=== PATIENT | male | born 1980 | race Caucasian/White ===

== ENCOUNTER 2023-10-06 23:28 | Emergency (ER) | payer OTHER, SELFPAY ==
[2023-10-06 23:39] VITALS: BP 150/101; PULSE 70; RESP 16; TEMP 36.7; O2SAT 96; BMI 34.4
[2023-10-07] VITALS: BP 160/100; PULSE 71; RESP 15; O2SAT 97
--- NOTE | 2023-10-07 00:15 | ECG_ITS ---
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 Measurements Intervals [place] Rate: 61 P: 38 ME: 133 QRS: 46 QRSD: 112 T: 40 QT: 398 QTc: 403 Interpretive Statements SINUS RHYTHM MODERATE INTRAVENTRICULAR CONDUCTION DELAY [110+ ms QRS DURATION] No previous ECG available for comparison Electronically Signed On 10-08-2023 0:07:12 CDT by Mary Garcia M.D. [id number]
[2023-10-07 00:29] LABS: Basophils # 0.1 10^3/uL (0.0-0.1); Basophils % 0.8 %; Eosinophils # 0.2 10^3/uL (0.0-0.8); Eosinophils % 2.8 %; Hematocrit 44.6 % (37-53); Lymphocytes # 1.9 10^3/uL (0.8-4.8); Lymphocytes % 31.2 %; Mean Corpuscular HGB Conc 33.6 g/dL (30-55); Mean Corpuscular Hemoglobin 30.1 pg (27-33); Mean Corpuscular Volume 89.4 fl (82-101); Mean Platelet Volume 9.7 fL (7.4-10.4); Monocytes # 0.5 10^3/uL (0.2-0.9); Monocytes % 7.8 %; Neutrophils # 3.53 10^3/uL (1.8-7.7); Neutrophils % 57.2 %; Nucleated Red Blood Cells % 0 %; Platelet Count 224 10^3/cmm (157-399); Red Blood Count 4.99 10^6/uL (3.85-5.65); Red Cell Distribution Width 14.2 % (12.1-15.1); White Blood Count 6.16 10^3/uL (3.29-11.43)
[2023-10-07 00:30] VITALS: BP 143/101; PULSE 68; RESP 16; O2SAT 96
[2023-10-07] MEDS: sodium chloride 0.9% 1,000 ML 999 ML IV (00:32)
--- NOTE | 2023-10-07 00:54 | W.ED.GENADLT ---
HPI - General Adult General: Chief complaint: General Medical Stated complaint: Lightheaded, High BP Time Seen by Provider: 10/07/23 00:08 History of Present Illness: Patient worked out in heat today and has not been drinking a lot of fluids. Earlier today he started feeling lightheaded had intermittent tingling numbness in his arms and legs. Patient denies any chest pain shortness of breath nausea vomiting coughs colds fevers chills. Patient's blood pressure was elevated at 150/101. Review of Systems General: Reports: 10 or more systems reviewed and unremarkable except in HPI and below Physical Exam Const: COMMON NORMALS: no acute distress, average body habitus, patient oriented x3, no limitations, healthy appearing, alert and well nourished HENMT: COMMON NORMALS: normocephalic, atraumatic, hearing grossly normal bilaterally, external ears normal, Normal external nose present and moist oral mucous membranes HEAD & SCALP: normocephalic and atraumatic NOSE: Normal external nose present EXTERNAL EAR: Yes external ears normal Eye: COMMON NORMALS: Equal, round and reactive pupils present, EOMs intact bilaterally, conjunctivae normal and no scleral icterus CONJUNCTIVA: Yes conjunctivae normal PUPIL: Yes Equal, round and reactive pupils present Neck/C-Spine: COMMON NORMALS: full ROM, no lymphadenopathy, supple, no meningeal signs, no JVD and Thyroid normal THYROID: Thyroid normal Chest: COMMONS NORMALS: normal inspection of the chest and normal palpation of entire chest wall Resp: COMMON NORMALS: normal respiratory effort, No retractions, No use of accessory muscles and clear to auscultation bilaterally AUSCULTATION: clear to auscultation bilaterally Cardio: COMMON NORMALS: no JVD, regular rate, regular rhythm, S1 normal heart sound present, S2 normal heart sound present, No gallops present (Cardio), No clicks present (Cardio), No murmurs present (Cardio) and No rub (Cardio) RATE: regular rate RHYTHM: regular rhythm HEART SOUNDS: S1 normal heart sound present and S2 normal heart sound present GI: COMMON NORMALS: Normal to inspection, nondistended, normoactive bowel sounds present, Soft to palpation, non-tender, No hepatosplenomegaly present and no masses PALPATION: Yes Soft to palpation and Yes No hepatosplenomegaly present Neuro: COMMON NORMALS: patient oriented x3 SENSORIUM/ORIENTATION: Yes alert MENINGEAL SIGNS: Yes no meningeal signs Course Vital Signs: Vital signs: Vital Signs Temperature 98.1 F 10/06/23 23:39 Pulse Rate 60 10/07/23 01:30 Respiratory Rate 16 10/07/23 01:30 Blood Pressure 166/99 10/07/23 01:30 Pulse Oximetry 95 10/07/23 01:30 Oxygen Delivery Me thod Room Air 10/07/23 00:00 MDM - General Adult Medical Decision Making Patient was bolused 1 L fluid, and lab work was checked, CBC CMP TSH urinalysis magnesium, glucose was 138, TSH was 4.66, magnesium was 1.8 urinalysis showed specific gravity 1.020, patient was feeling much better after liter of fluid patient was instructed to drink more fluids. And follow-up with [facility] practitioner in the next 7 days also keep an eye on his blood pressure. Medical Records I reviewed the patient's medical records. Lab Data I reviewed the patient's lab results. 10/07/23 00:18 10/07/23 00:18 Laboratory Results WBC 6.16 10^3/uL (3.29-11.43) 10/07/23 00:18 RBC 4.99 10^6/uL (3.85-5.65) 10/07/23 00:18 Hgb 15.00 g/dL (11.27-16.99) 10/07/23 00:18 Hct 44.6 % (37-53) 10/07/23 00:18 MCV 89.4 fl (82-101) 10/07/23 00:18 MCH 30.1 pg (27-33) 10/07/23 00:18 MCHC 33.6 g/dL (30-55) 10/07/23 00:18 RDW 14.2 % (12.1-15.1) 10/07/23 00:18 Plt Count 224 10^3/cmm (157-399) 10/07/23 00:18 MPV 9.7 fL (7.4-10.4) 10/07/23 00:18 Neut % (Auto) 57.2 % 10/07/23 00:18 Lymph % (Auto) 31.2 % 10/07/23 00:18 [place] % (Auto) 7.8 % 10/07/23 00:18 Eos % (Auto) 2.8 % 10/07/23 00:18 Baso % (Auto) 0.8 % 10/07/23 00:18 Neut # (Auto) 3.53 10^3/uL (1.8-7.7) 10/07/23 00:18 Lymph # (Auto) 1.9 10^3/uL (0.8-4.8) 10/07/23 00:18 [place] # (Auto) 0.5 10^3/uL (0.2-0.9) 10/07/23 00:18 Eos # (Auto) 0.2 10^3/uL (0.0-0.8) 10/07/23 00:18 Baso # (Auto) 0.1 10^3/uL (0.0-0.1) 10/07/23 00:18 Nucleated RBC % (auto) 0 % 10/07/23 00:18 Nucleated RBCs # 0.0 /100WBC 10/07/23 00:18 Sodium 139 mmol/L (136-145) 10/07/23 00:18 Potassium 4.1 mmol/L (3.5-5.1) 10/07/23 00:18 Chloride 103 mmol/L (98-107) 10/07/23 00:18 Carbon Dioxide 26 mmol/L (22-29) 10/07/23 00:18 Anion Gap 14.1 (5-19) 10/07/23 00:18 BUN 9 mg/dL (6-20) 10/07/23 00:18 Creatinine 0.8 mg/dL (0.7-1.2) 10/07/23 00:18 GFR Calculation 105.5 mL/min (90-130) 10/07/23 00:18 Glucose 138 mg/dL (65-115) H 10/07/23 00:18 Calculated Osmolality 289 mOsm/kg (285-295) 10/07/23 00:18 Calcium 9.7 mg/dL (8.5-10.5) 10/07/23 00:18 Magnesium 1.8 mg/dL (1.7-2.3) 10/07/23 00:18 Total Bilirubin 0.2 mg/dL (0.15-1.2) 10/07/23 00:18 AST 65 U/L (0-40) H 10/07/23 00:18 ALT 88 U/L (0-41) H 10/07/23 00:18 Alkaline Phosphatase 74 U/L (40-130) 10/07/23 00:18 Creatine Kinase 98 U/L (39-308) 10/07/23 00:18 Total Protein 6.9 g/dL (6.6-8.7) 10/07/23 00:18 Albumin 3.9 g/dL (3.5-5.2) 10/07/23 00:18 Globulin 3.0 g/dL (1.3-4.6) 10/07/23 00:18 TSH 4.66 uIU/mL (0.27-4.20) H 10/07/23 00:18 Urine Color Yellow (Yellow) 10/07/23 01:25 Urine Appearance Clear (CLEAR) 10/07/23 01:25 Urine pH 6 (5-7) 10/07/23 01:25 Ur Specific [place] 1.020 (1.005-1.030) 10/07/23 01:25 Urine Protein Neg (Negative) 10/07/23 01:25 Urine Glucose (UA) Norm (Normal) 10/07/23 01:25 Urine Ketones Negative (Negative) 10/07/23 01:25 Urine Blood Neg (Negative) 10/07/23 01:25 Urine Nitrate Negative (Negative) 10/07/23 01:25 Urine Bilirubin Neg (Negative) 10/07/23 01:25 Urine Urobilinogen Neg mg/dL (Negative) 10/07/23 01:25 Ur Leukocyte Esterase Negative (Negative) 10/07/23 01:25 All radiology interpretation(s) finalized by discharge Discharge Plan Discharge Patient Disposition: Home Clinical Impression: Acute dehydration Condition: Stable Discharge Orders: Discharge ED (Routine); Ordered 10/07/23 Ordered By: Tanner Grant Patient Instructions: Dehydration - Adult Activity Restrictions/Additional Instructions: During heat please make sure you push plenty of fluids. Your labs show you are mildly dehydrated. Your liver enzymes are slightly elevated as well as your TSH for your thyroid. This is probably due to dehydration as well however you may want to have these rechecked in the short-term future. Please keep an eye on your blood pressure as your blood pressure has been slightly elevated in the ER this may be due to dehydration or may be due to just you developing high blood pressure. Please follow-up with your family practice doctor in the next 7 to 10 days for further evaluation and treatment. Coding Level of Care Code ED Panelboard Operator for Sandra Bunch
[2023-10-07 00:57] LABS: Alanine Aminotransferase 88 U/L (0-41); Albumin Level 3.9 g/dL (3.5-5.2); Alkaline Phosphatase 74 U/L (40-130); Anion Gap 14.1 (5-19); Aspartate Amino Transferase 65 U/L (0-40); Blood Urea Nitrogen 9 mg/dL (6-20); Calcium 9.7 mg/dL (8.5-10.5); Carbon Dioxide 26 mmol/L (22-29); Chloride 103 mmol/L (98-107); Creatine Phosphokinase 98 U/L (39-308); Creatinine Clr Calc Pharmacy 147.0911; Glomerular Filtration Rate 105.5 mL/min (90-130); Glucose 138 mg/dL (65-115); Magnesium 1.8 mg/dL (1.7-2.3); Osmolality Calculated 289 mOsm/kg (285-295); Potassium 4.1 mmol/L (3.5-5.1); Sodium 139 mmol/L (136-145); Thyroid Stimulating Hormone 4.66 uIU/mL (0.27-4.20); Total Bilirubin 0.2 mg/dL (0.15-1.2); Total Protein 6.9 g/dL (6.6-8.7)
[2023-10-07 01:00] VITALS: BP 161/87; PULSE 61; RESP 13; O2SAT 97
[2023-10-07 01:26] LABS: Add Urine Microscopic? NO; Charge for UA Resulting for Rev
[2023-10-07 01:29] LABS: Bilirubin Urine Neg (Negative); Blood Urine Neg (Negative); Glucose Urine UA Norm (Normal); Ketones Urine Negative (Negative); Leukocyte Esterase Urine Negative (Negative); Nitrate Urine Negative (Negative); Protein Urine Neg (Negative); Urine Appearance Clear (CLEAR); Urine Color Yellow (Yellow); Urobilinogen Urine Neg (Negative); pH Urine 6 (5-7)
[2023-10-07 01:30] VITALS: BP 166/99; PULSE 60; RESP 16; O2SAT 95
[2023-10-07 02:00] VITALS: BP 150/95; PULSE 57; RESP 15; O2SAT 95
== END 2023-10-07 02:26 | disposition home or self-care (01) ==
PROVIDERS: Emergency Provider Emergency Medicine
DX: E86.0 Dehydration (principal)
CPT/HCPCS: 80053; 81003; 82550; 83735; 84443; 85025; 93005; 96360; 99284; J7030

== ENCOUNTER → 2024-04-14 07:46 | Outpatient (BNVA) | payer MEDICAID, SELFPAY | PROVIDERS: Visit Provider Registered Nurse Neonatal Intensive Care | DX: R07.89 Other chest pain (principal) | CPT/HCPCS: 71046 ==

== ENCOUNTER 2024-12-20 11:02 | Emergency (ER) | payer OTHER, SELFPAY ==
--- NOTE | 2024-12-20 11:05 | XR_ITS ---
WS: [id number] Portable AP upright chest, 12/20/2024 Clinical Data: Shortness of breath Comparison: Two-view chest, 04/14/2024 Findings: No nodules, masses or effusions are seen. The heart is normal. The pulmonary vascularity is not increased. No pneumonia or pneumothorax is seen. There are monitor leads on the chest wall. XR/XR chest 1V portable [id number] Impression: Negative chest.
--- NOTE | 2024-12-20 11:05 | ECG_ITS ---
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 Measurements Intervals [place] Rate: 80 P: 60 OR: 161 QRS: 66 QRSD: 114 T: 63 QT: 380 QTc: 441 Interpretive Statements SINUS RHYTHM MODERATE INTRAVENTRICULAR CONDUCTION DELAY [110+ ms QRS DURATION] Compared to ECG 10/07/2023 00:31:35 No significant changes Electronically Signed On 12-21-2024 21:02:52 CDT by Bhavin Ortiz M.D. [id number] [id number]
[2024-12-20 11:08] VITALS: BP 131/86; PULSE 78; RESP 17; TEMP 36.4; O2SAT 96; BMI 31.5
--- NOTE | 2024-12-20 11:35 | ED_ITS ---
HPI - SOB/Dyspnea 2 General: Chief Complaint: Shortness of Breath/Dyspnea Stated Complaint: unable to catch breath x2 days, haroon ayala sent Time Seen by Provider: 12/20/24 11:04 History of Present Illness: HPI Narrative: 44-year-old male presents emergency room complaining of shortness of breath for last 2 days intermittent chest discomfort. He was breathing rapidly when he arrived here complaining of allover numbness. States chest discomfort is more of pressure. He has no known history of coronary disease he does have a history of hypertension he is normotensive on arrival however. No radiation of any pain into the neck arms or legs. Patient states he thinks he may be having a panic attack. Associated symptoms: Reports chest pain; Deny abdominal pain or fever(s) Related Data Previous Rx's ?Medication ?Instructions ?Recorded hydroxyzine HCl 25 mg tablet 25 mg PO Q6H PRN anxiety #14 tabs 12/20/24 Allergies Allergy/AdvReac Type Severity Reaction Status Date / Time No Known Allergies Allergy Verified 12/20/24 11:20 Review of Systems 2 Const: Denies: fever(s) or chills Card: Reports: chest pain Resp: Reports: dyspnea GI: Denies: abdominal pain : Denies: dysuria, urinary frequency or urinary urgency Musc: Denies: neck pain or back pain Skin/Breast: Denies: rash PFSH ED 2 PFSH: Social History Smoking and tobacco/nicotine status: current every day tobacco/nicotine user Physical Exam 2 Const: GENERAL APPEARANCE: cooperative ORIENTATION/CONSCIOUSNESS: Yes awake, Yes oriented to person, Yes oriented to place and Yes oriented to time HENMT: COMMON NORMALS: normocephalic, atraumatic and hearing grossly normal bilaterally HEAD & SCALP: normocephalic and atraumatic Resp: COMMON NORMALS: normal respiratory effort, No retractions, No use of accessory muscles and clear to auscultation bilaterally AUSCULTATION: clear to auscultation bilaterally Cardio: COMMON NORMALS: regular rate, regular rhythm and No murmurs present (Cardio) RATE: regular rate RHYTHM: regular rhythm GI: COMMON NORMALS: Soft to palpation and No hepatosplenomegaly present A USCULTATION: Yes normoactive bowel sounds PALPATION: Yes Soft to palpation, No Tenderness to palpation present (GI), No Guarding due to palpation present (GI) and Yes No hepatosplenomegaly present Extremity: COMMON NORMALS: normal to inspection, capillary refill normal, no clubbing, cyanosis or edema, no calf tenderness and no pedal edema Neuro: SENSORIUM/ORIENTATION: Yes oriented to person, Yes oriented to place and Yes oriented to time Skin: COMMON NORMALS: no rashes or lesions noted GENERAL SKIN EXAM: no rashes or lesions noted Course 2 Vital Signs: Vital signs: Vital Signs Temperature 97.6 F 12/20/24 11:08 Pulse Rate 71 12/20/24 13:14 Respiratory Rate 16 12/20/24 13:14 Blood Pressure 130/85 12/20/24 13:14 Pulse Oximetry 95 12/20/24 13:14 MDM - SOB/Dyspnea Medical Decision Making Patient is hyperventilating on arrival. All of his symptoms have resolved and route reviewed with him EKG is normal initial troponin undetectable D-dimer negative he is feeling much better. His lactate is elevated he has no signs of secondary infection he was given fluids. He is not having any myalgias at this point. Will discharge patient home given hydroxyzine to use as needed have him follow-up with his primary care doctor as needed. Medical Records I reviewed the patient's medical records. Lab Data I reviewed the patient's lab results. 12/20/24 11:33 12/20/24 11:33 Labs/Radiology: Radiology Impressions Chest X-Ray 12/20/24 11:05 Impression: Negative chest. Laboratory Results WBC 10.68 10^3/uL (3.29-11.43) 12/20/24 11:33 RBC 4.93 10^6/uL (3.85-5.65) 12/20/24 11:33 Hgb 15.40 g/dL (11.27-16.99) 12/20/24 11:33 Hct 42.6 % (37-53) 12/20/24 11:33 MCV 86.4 fl (82-101) 12/20/24 11:33 MCH 31.2 pg (27-33) 12/20/24 11:33 MCHC 36.2 g/dL (30-55) 12/20/24 11:33 RDW 12.4 % (12.1-15.1) 12/20/24 11:33 Plt Count 294 10^3/cmm (157-399) 12/20/24 11:33 MPV 9.1 fL (7.4-10.4) 12/20/24 11:33 Neut % (Auto) 67.6 % 12/20/24 11:33 Lymph % (Auto) 25.2 % 12/20/24 11:33 [place] % (Auto) 5.9 % 12/20/24 11:33 Eos % (Auto) 0.3 % 12/20/24 11:33 Baso % (Auto) 0.7 % 12/20/24 11:33 Neut # (Auto) 7.23 10^3/uL (1.8-7.7) 12/20/24 11:33 Lymph # (Auto) 2.7 10^3/uL (0.8-4.8) 12/20/24 11:33 [place] # (Auto) 0.6 10^3/uL (0.2-0.9) 12/20/24 11:33 Eos # (Auto) 0.0 10^3/uL (0.0-0.8) 12/20/24 11:33 Baso # (Auto) 0.1 10^3/uL (0.0-0.1) 12/20/24 11:33 Nucleated RBC % (auto) 0 % 12/20/24 11:33 Nucleated RBCs # 0.0 /100WBC 12/20/24 11:33 D-Dimer <= 0.27 ug/mLFEU (0-0.59) 12/20/24 11:33 Specimen Type Arterial 12/20/24 11:36 Sample Site Radial, left 12/20/24 11:36 ABG pH 7.47 (7.35-7.45) H 12/20/24 11:36 ABG pCO2 33.6 mmHg (35-45) L 12/20/24 11:36 ABG pO2 74.6 mmHg (80.0-100.0) L 12/20/24 11:36 ABG PO2/FiO2 Ratio 355 12/20/24 11:36 ABG HCO3 24.5 mmol/L (22-26) 12/20/24 11:36 ABG O2 Saturation 97.0 12/20/24 11:36 ABG Base Excess 1.4 mmol/L (-2.0-2.0) 12/20/24 11:36 Leonard Test Pos 12/20/24 11:36 A-a O2 Gradient 4.3 mmHg (5-10) L 12/20/24 11:36 Hematocrit 47.8 % (42-52) 12/20/24 11:36 Hgb O2 Saturation 89.8 % (95-100) L 12/20/24 11:36 Carboxyhemoglobin 7.4 %THgb (0.4-20.1) 12/20/24 11:36 Methemoglobin 0.0 % (0.4-1.5) L 12/20/24 11:36 Total Hemoglobin 15.6 g/dL (14-18) 12/20/24 11:36 Sodium 137.0 mmol/L (131-143) 12/20/24 11:36 Potassium 3.7 mmol/L (3.5-5.0) 12/20/24 11:36 Glucose 113.0 mg/dL (70-115) 12/20/24 11:36 Ionized Calcium 1.2 mmol/L (1.1-1.4) 12/20/24 11:36 O2 Delivery Device Room air 12/20/24 11:36 FiO2 21.0 % 12/20/24 11:36 Berry Picker Machine Operator ID [place] 12/20/24 11:36 Sodium 135 mmol/L (136-145) L 12/20/24 11:33 Potassium 4.1 mmol/L (3.5-5.1) 12/20/24 11:33 Chloride 101 mmol/L (98-107) 12/20/24 11:33 Carbon Dioxide 22 mmol/L (22-29) 12/20/24 11:33 Anion Gap 16.1 (5-19) 12/20/24 11:33 BUN 9 mg/dL (6-20) 12/20/24 11:33 Creatinine 0.6 mg/dL (0.7-1.2) L 12/20/24 11:33 GFR Calculation 146.4 mL/min (90-130) H 12/20/24 11:33 Glucose 118 mg/dL (65-115) H 12/20/24 11:33 Calculated Osmolality 280 mOsm/kg (285-295) L 12/20/24 11:33 Lactic Acid 2.6 mmol/L (0.5-2.2) H 12/20/24 11:33 Calcium 9.0 mg/dL (8.5-10.5) 12/20/24 11:33 Total Bilirubin 0.2 mg/dL (0.15-1.2) 12/20/24 11:33 AST 32 U/L (0-40) 12/20/24 11:33 ALT 58 U/L (0-41) H 12/20/24 11:33 Alkaline Phosphatase 71 U/L (40-130) 12/20/24 11:33 Troponin T Baseline < 6 ng/L (0-15) 12/20/24 11:33 NT-Pro-B Natriuret Pep < 36 pg/mL (0-125) 12/20/24 11:33 Total Protein 7.3 g/dL (6.6-8.7) 12/20/24 11:33 Albumin 4.5 g/dL (3.5-5.2) 12/20/24 11:33 Globulin 2.8 g/dL (1.3-4.6) 12/20/24 11:33 Influenza A (PCR) Negative (Negative) 12/20/24 12:08 Influenza Type B (PCR) Negative (Negative) 12/20/24 12:08 RSV (PCR) Negative (Negative) 12/20/24 12:08 SARS-CoV-2 (PCR) Negative (Negative) 12/20/24 12:08 All radiology interpretation(s) finalized by discharge EKG Data EKG 1: Interpretation: EKG 12/20/2024 11:10 AM sinus rhythm rate of 80 [place] interval 161 QTc [address] No acute ST changes noted. Compared to EKG 10/07/2023 no significant changes noted Discharge Plan Discharge Patient Disposition: Home Clinical Impression: Hyperventilation Condition: Stable Prescriptions: New hydroxyzine HCl 25 mg tablet 25 mg PO Q6H PRN (Reason: anxiety) Qty: 14 0RF Discharge Orders: Discharge ED (Routine); Ordered 12/20/24 Ordered By: Berny Marsh Referrals: Michael Parker MD [Primary Care Provider, [facility]] Discharge Diet: Usual diet Discharge Activity: Resume usual activity Patient Instructions: Opioid Safety, Pain Management, Patient Portal & Afshan Instructions Activity Restrictions/Additional Instructions: Thank you for choosing [facility] for your healthcare needs today. It is very important that you follow up as instructed or that you return to the Emergency Department should you have concerns or if your condition changes or worsens in any way. Emergency department visits are focused on emergent conditions, in some cases you may require further evaluation on an outpatient basis. You were seen in the emergency room with complaints of numbness tingling lightheadedness. Your laboratory studies were normal EKG and chest x-ray are normal D-dimer and cardiac enzyme were negative. Your blood gas showed signs of hyperventilation. Will discharge home have you follow-up with your primary care doctor we did give a prescription for hydroxyzine to use as needed for anxiety issues. Return if you have further problems. (Please note that included in your discharge packet is information concerning opioid safety and pain management. This information is given to all patients were discharged from the ER regardless of their discharge diagnosis or the medicines they usually take or are prescribed.) Print Language: Welsh Coding Level of Care Code ED Director Fixed Income for Sandra Bunch
[2024-12-20 11:44] LABS: Hematocrit 42.6 % (37-53); Hemoglobin 15.40 g/dL (11.27-16.99); Mean Corpuscular HGB Conc 36.2 g/dL (30-55); Mean Corpuscular Hemoglobin 31.2 pg (27-33); Mean Corpuscular Volume 86.4 fl (82-101); Nucleated Red Blood Cells % 0 %; Platelet Count 294 10^3/cmm (157-399); Red Blood Count 4.93 10^6/uL (3.85-5.65); White Blood Count 10.68 10^3/uL (3.29-11.43)
[2024-12-20 11:47] LABS: ABG PCO2 33.6 mmHg (35-45); ABG PH Result 7.47 (7.35-7.45); Alveolar-Arterial Oxygen Gradi 4.3 mmHg (5-10); Arterial Blood Gas Hematocrit 47.8 % (42-52); Blood Gas Allen Test Pos; Blood Gas Operator Identificat WALCI; Blood Gas Sample Site Radial, left; Blood Gas Sample Type Arterial; Carboxyhemoglobin 7.4 %THgb (0.4-20.1); Glucose Level-ABG 113.0 mg/dL (70-115); HCO3 ABG 24.5 mmol/L (22-26); Ionized Calcium Level - ABG 1.2 mmol/L (1.1-1.4); Methemoglobin 0.0 % (0.4-1.5); Oxygen Saturation ABG 97.0; PO2 ABG 74.6 mmHg (80.0-100.0); PO2 FiO2 Ratio Arterial Blood 355; Potassium Level - ABG 3.7 mmol/L (3.5-5.0); Sodium Level - ABG 137.0 mmol/L (131-143)
[2024-12-20 12:04] LABS: Troponin(5th) Baseline < 6 ng/L (0-15)
[2024-12-20 12:06] LABS: Lactic Sepsis W/Reflex 2.6 mmol/L (0.5-2.2)
[2024-12-20 12:16] LABS: Alanine Aminotransferase 58 U/L (0-41); Albumin Level 4.5 g/dL (3.5-5.2); Alkaline Phosphatase 71 U/L (40-130); Anion Gap 16.1 (5-19); Aspartate Amino Transferase 32 U/L (0-40); Blood Urea Nitrogen 9 mg/dL (6-20); Calcium 9.0 mg/dL (8.5-10.5); Carbon Dioxide 22 mmol/L (22-29); Chloride 101 mmol/L (98-107); Creatinine Clr Calc Pharmacy 186.0356; Globulin 2.8 g/dL (1.3-4.6); Glucose 118 mg/dL (65-115); NT Pro B Type Natriuretic Pept < 36 pg/mL (0-125); Osmolality Calculated 280 mOsm/kg (285-295); Potassium 4.1 mmol/L (3.5-5.1); Sodium 135 mmol/L (136-145); Total Protein 7.3 g/dL (6.6-8.7)
[2024-12-20 12:34] VITALS: BP 120/80; PULSE 70; RESP 16; O2SAT 92
[2024-12-20 13:12] LABS: Respiratory Syncytial Virus Ce NEGATIVE (Negative); SARS-CoV-2 PCR NEGATIVE (Negative)
[2024-12-20 13:14] VITALS: BP 130/85; PULSE 71; RESP 16; O2SAT 95
[2024-12-20 13:23] LABS: Reflex Lactate Order REFLEX LACTIC ORDERD
== END 2024-12-20 13:15 | disposition home or self-care (01) ==
PROVIDERS: Emergency Medicine; Emergency Provider Family Medicine; PCP Family Medicine
DX: R06.4 Hyperventilation (principal); Z11.52 Encounter for screening for COVID-19; Z72.0 Tobacco use
CPT/HCPCS: 36600; 71045; 80051; 80053; 82330; 82805; 83605; 83880; 84484; 85025; 85378; 87637; 93005; 99285; J7030